=== PATIENT | male | born 2000 | race Caucasian/White ===

== ENCOUNTER 2018-09-29 16:32 | Emergency (ER) | payer SELFPAY ==
[2018-09-29 16:54] VITALS: BP 143/63
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
== END 2018-09-29 17:43 | disposition home or self-care (01) ==
LOC: ER 16:32
DX: F07.81 Postconcussional syndrome (principal); R42 Dizziness and giddiness; R51 Headache; R22.0 Localized swelling, mass and lump, head; Y04.0XXA Assault by unarmed brawl or fight, initial encounter
CPT/HCPCS: 99283

== ENCOUNTER 2019-10-23 14:18 | Emergency (ER) | payer SELFPAY ==
--- NOTE | 2019-10-23 15:54 | ER Document Report ---
HPI - HPI Time Seen by Provider: 10/23/19 15:49 Pain Level: 3 Notes: CHIEF COMPLAINT: Dental pain for months HPI: 19-year-old male presenting to the emergency department complaining of left lower posterior dental pain over the last several months. Has not seen a dent ist. Denies facial swelling or fever. Also would like referral to ENT regarding an enlarged tonsil that is been present for years. ROS: See HPI - all other systems were reviewed and are otherwise negative Constitutional: no fever Eyes: no drainage, no blurred vision ENT: no runny nose, no sore throat, positive dental pain Integumentary: no rash Allergy: no hives MEDICATIONS: I agree with the patient medications as charted by the RN. ALLERGIES: I agree with the allergies as charted by the RN. PAST MEDICAL HISTORY/PAST SURGICAL HISTORY: Reviewed and agree as charted by RN. SOCIAL HISTORY: Reviewed and agree as charted by RN. FAMILY HISTORY: No significant familial comorbid conditions directly related to patient complaint EXAM: Reviewed vital signs as charted by RN. CONSTITUTIONAL: Alert and oriented and responds appropriately to questions. Well-appearing; well-nourished, mild HEAD: Normocephalic; atraumatic EYES: PERRL; Conjunctivae clear, sclerae non-icteric ENT: normal nose; no rhinorrhea; moist mucous membranes; pharynx without lesions noted, no uvula edema or deviation, left tonsil mildly enlarged relative to the right tonsil, phonation normal. Left lower second molar with moderate dental caries without gingival edema. No sublingual swelling. No trismus. No facial swelling NECK: Supple without meningismus; non-tender; no cervical lymphadenopathy, no masses CARD: RRR; no murmurs, no clicks, no rubs, no gallops; symmetric distal pulses RESP: Normal chest excursion without splinting or tachypnea; breath sounds clear and equal bilaterally; no wheezes, no rhonchi, no rales, pulse oximetry ABD/GI: Normal bowel sounds; non-distended; soft, non-tender, no rebound, no guarding; no palpable organomegaly or masses. BACK: The back appears normal and is non-tender to palpation, there is no CVA tenderness EXT: Normal ROM in all joints; non-tender to palpation; no cyanosis, no effusions, no edema SKIN: Normal color for age and race; warm; dry; good turgor; no acute lesions noted NEURO: Moves all extremities equally; Motor and sensory function intact PSYCH: The patient's mood and manner are appropriate. Grooming and personal hygiene are appropriate. MDM: 19-year-old male with dental pain. Will start on antibiotics to treat for infection, referral to dental of his choice, referral to ENT regarding his tonsillar hypertrophy does not appear to be an infection - CONSTITUTIONAL Constitutional: DENIES: Fever, Chills - EENT EENT: DENIES: Sore Throat, Ear Pain, Eye problems - NEURO Neurology: DENIES: Headache, Weakness, Vision blurred, Dizzinesss / Vertigo - CARDIOVASCULAR Cardiovascular: DENIES: Chest pain - RESPIRATORY Respiratory: DENIES: Trouble Breathing, Coughing - GASTROINTESTINAL Gastrointestinal: DENIES: Abdominal Pain, Black / Bloody Stools - URINARY Urinary: DENIES: Dysuria, Urgency, Frequency - REPRODUCTIVE Reproductive: DENIES: : - MUSCULOSKELETAL Musculoskeletal: DENIES: Extremity pain Past Medical History - Social History Smoking Status: Current Every Day Smoker Chew tobacco use (# tins/day): No Frequency of alcohol use: None Drug Abuse: None Family History: Reviewed & Not Pertinent Patient has suicidal ideation: No Patient has homicidal ideation: No Renal/ Medical History: Denies: Hx Peritoneal Dialysis - Immunizations Immunizations up to date: Yes Hx Diphtheria, Pertussis, Tetanus Vaccination: No Vertical Provider Document - INFECTION CONTROL TRAVEL OUTSIDE OF THE [place] IN LAST 30 DAYS: No Course - Vital Signs Vital signs: Temp Pulse Resp BP Pulse Ox 98.2 F 83 18 117/70 100 10/23/19 15:15 10/23/19 15:15 10/23/19 15:15 10/23/19 15:15 10/23/19 15:15 Discharge - Discharge Clinical Impression: Pain due to dental caries, Tonsillar hypertrophy, unilateral Condition: Stable Disposition: HOME, SELF-CARE Additional Instructions: Medications as prescribed no driving if taking narcotics follow-up with a dentist of your choice for definitive management as well as further pain management. Follow-up with ENT regarding the enlarged tonsil call for tyler ointment Prescriptions: Penicillin V Potassium [Penicillin Vk 500 mg Tablet] 500 mg PO BID #20 tablet Tramadol HCl [Ultram 50 mg Tablet] 50 mg PO Q6H PRN #12 tab PRN Reason: Diclofenac Sodium [Voltaren 50 Mg Tablet.Dr] 50 mg PO BID #20 tablet. Referrals: REGGIE WANG DO [ASSOCIATE] - Follow up as needed APRYL AGUERO DDS [NO LOCAL MD] - Follow up as needed
[2019-10-23 16:43] VITALS: BP 116/60
== END 2019-10-23 16:42 | disposition home or self-care (01) ==
LOC: ER 14:18
DX: K02.9 Dental caries, unspecified (principal); J35.1 Hypertrophy of tonsils; K08.89 Other specified disorders of teeth and supporting structures; F17.200 Nicotine dependence, unspecified, uncomplicated
CPT/HCPCS: 99282

== ENCOUNTER 2020-03-07 14:10 | Emergency (ER) | payer SELFPAY ==
[2020-03-07] MEDS ORDERED: LIDOCAINE 2% VISCOUS SOLN 15 ML UDCUP PO ONE (14:24)
--- NOTE | 2020-03-07 14:27 | ER Document Report ---
HPI - HPI Time Seen by Provider: 03/07/20 14:13 Notes: Otherwise healthy 19-year-old male presenting with chief complaint of dental pain. Patient reports pain at tooth #17. He states pain has been ongoing for the last several days. He denies any fever or drainage from the area. He reports that he needs to have his wisdom teeth removed. He saw a dentist earlier today who started him on amoxicillin. He states he cannot afford to go to the oral surgeon to have his wisdom teeth removed. - ROS Systems Reviewed and Negative: Yes All other systems reviewed and negative - EENT Notes: Dental pain - REPRODUCTIVE Reproductive: DENIES: : Past Medical History - General Information source: Patient - Social History Smoking Status: Never Smoker Frequency of alcohol use: None Drug Abuse: None Family History: Reviewed & Not Pertinent - Medical History Medical History: Negative Renal/ Medical History: Denies: Hx Peritoneal Dialysis Surgical Hx: Negative - Immunizations Immunizations up to date: Yes Hx Diphtheria, Pertussis, Tetanus Vaccination: No Vertical Provider Document - CONSTITUTIONAL Notes: PHYSICAL EXAMINATION: GENERAL: Well-appearing, well-nourished and in no acute distress. HEAD: Atraumatic, normocephalic. EYES: Pupils equal round extraocular movements intact, conjunctiva are normal. ENT: Nares patent. Erythema surrounding tooth #15. No birdie abscess. No trismus. No facial swelling. NECK: Normal range of motion LUNGS: No respiratory distress Musculoskeletal: Normal range of motion NEUROLOGICAL: Normal speech, normal gait. PSYCH: Normal mood, normal affect. SKIN: Warm, Dry, normal turgor, no rashes or lesions noted. - INFECTION CONTROL TRAVEL OUTSIDE OF THE [place] IN LAST 30 DAYS: No Course - Re-evaluation Re-evalutation: Presentation is most consistent with likely an infected tooth. Airway is patent. Vitals within normal limits. Patient is able swallow without any difficulty. There is no significant facial swelling. No evidence of Jj angina, apical abscess, or airway obstruction. Patient will be started on antibiotics. I've instructed to follow-up with dentistry as earliest ability for definitive management. At this time will discharge with return precautions and follow-up recommendations. Verbal discharge instructions given a the bedside and opportunity for questions given. Medication warnings reviewed. Patient is in agreement with this plan and has verbalized understanding of return precautions and the need for primary care follow-up in the next 24-72 hours. Discharge - Discharge Clinical Impression: Pain, dental Condition: Stable Disposition: HOME, SELF-CARE Additional Instructions: Please call the [facility] at [phone]. They may be able to help do the dental extraction for you. Continue taking ibuprofen. Take the narcotic pain medication for severe pain only. We will not be able to refill this medication. Prescriptions: Tramadol HCl [Ultram 50 mg Tablet] 50 mg PO Q6HP PRN #12 tab PRN Reason: For Pain Referrals: [facility] [Provider Group] - Follow up as needed
[2020-03-07 14:53] VITALS: BP 137/70
== END 2020-03-07 14:58 | disposition home or self-care (01) ==
LOC: ER 14:10
DX: K08.89 Other specified disorders of teeth and supporting structures (principal)
CPT/HCPCS: 99282; J3490